=== PATIENT | male | born 1965 | race Caucasian/White ===

== ENCOUNTER 2017-03-15 08:55 | Observation (INO) | payer OTHER ==
[~2017-03-15] VITALS: Ht 167.6 cm; Wt 118.8 kg
[~2017-03-15 08:55] MED LIST: NAPR1TAB9 PO; PRLSR20 PO; ZNTT/150 PO
[2017-03-15] MEDS ORDERED: ONDANSETRON INJ 2 MG/ML 2 ML VIAL IV STA (09:26)
[2017-03-15] MEDS ORDERED: ALUMINUM/MAGNESIUM SUSP 30 ML UDC PO STA (09:26)
[2017-03-15] MEDS ORDERED: NITROGLYCERIN OINT 2% 1GM PACKET EXT ONE (09:30)
[2017-03-15 09:35] LABS: BASO % 0.9 %; BASO ABS # 0.04 K/uL (0-0.2); COMPLETE YES; EOS % 2.9 %; HEMATOCRIT 45.6 % (42-52); IG% 0.2 %; LYMPH ABS # 1.32 K/uL (1.2-3.4); MEAN CELL VOLUME 87.9 fL (80-100); MEAN CORPUSCULAR HEMOGLOBIN 29.5 pg (25-34); MEAN CORPUSCULAR HGB CONC 33.6 g/dl (32-36); MEAN PLATELET VOLUME 10.7 fL (7.4-10.4); PLATELET COUNT 137 K/uL (130-400); RED BLOOD COUNT 5.19 M/uL (4.7-6.1); WHITE BLOOD COUNT 4.55 K/uL (4.8-10.8)
--- NOTE | 2017-03-15 09:47 | DIAGNOSTIC IMAGING REPORT ---
CHEST ONE VIEW PORTABLE CLINICAL HISTORY: 51 years-old Male presenting with chest pain. TECHNIQUE: Portable upright AP view of the chest was obtained. COMPARISON: None. FINDINGS: Cardiomediastinal silhouette normal. Lungs and pleural spaces clear. Osseous structures and upper abdomen normal. IMPRESSION: 1. No acute cardiopulmonary disease. Electronically signed by: Harry Regan 03/15/2017 9:45 AM Dictated Date/Time: 03/15/2017 9:45 AM
[2017-03-15 09:49] LABS: ALT/SGPT 30 U/L (12-78); BLOOD UREA NITROGEN 8 mg/dl (7-18); BUN/CREATININE RATIO 8.3 (10-20); CALCIUM 8.7 mg/dl (8.5-10.1); CARBON DIOXIDE 25 mmol/L (21-32); CHLORIDE 106 mmol/L (98-107); CREATININE 0.95 mg/dl (0.60-1.40); GLUCOSE 107 mg/dl (70-99); POTASSIUM 3.9 mmol/L (3.5-5.1); SODIUM 139 mmol/L (136-145)
[2017-03-15 09:54] LABS: ALB/GLOB RATIO 0.8 (0.9-2); ALKALINE PHOSPHATASE 91 U/L (45-117); AST/SGOT 17 U/L (15-37)
[2017-03-15 10:00] LABS: INR 0.9 (0.9-1.1); PROTHROMBIN TIME (PATIENT) 10.1 SECONDS (9.0-12.0)
[2017-03-15] MEDS ORDERED: OPTIRAY 320 IV PRN (10:15)
--- NOTE | 2017-03-15 10:44 | DIAGNOSTIC IMAGING REPORT ---
(CHEST FOR PE) ANGIO WITH CT DOSE: 751.45 mGy.cm HISTORY: 51-year-old male presents with acute chest pain and shortness of breath for 3 days. TECHNIQUE: Multiple CTA images of the chest were obtained after the intravenous administration of 118 mL Optiray 320. Coronal and sagittal MIPS were obtained from the axial data set and were submitted for review. Comparison: Chest radiograph of same day. Findings: CTA: There is adequate opacification of the pulmonary arteries to the level of the subsegmental branches without convincing evidence of acute pulmonary embolism. The thoracic aorta is normal in caliber with bovine morphology. CT CHEST: No axillary or mediastinal adenopathy by CT size criteria. Heart size is normal. The lungs are clear. There is no pneumothorax or pleural effusion. No focal airspace consolidation. Central airways are patent. The imaged upper abdominal structures are with exception of a small sliding-type hiatal hernia. The osseous structures appear intact. Multilevel bridging osteophytes are present throughout the spine. Impression: 1. No acute cardiopulmonary process, specifically no acute aortic pathology or evidence of pulmonary thromboembolic disease. 2. Small sliding-type hiatal hernia incidentally noted. Electronically signed by: Zoltan Ann 03/15/2017 10:43 AM Dictated Date/Time: 03/15/2017 10:37 AM
[2017-03-15] MEDS ORDERED: SODIUM CHLORIDE 0.9% 1000ML 1,000 ML IV STA (10:58)
[2017-03-15] MEDS ORDERED: MoRPHine SULFATE 4 MG/ML 1 ML CARP\\VIAL IV STA (10:58)
[2017-03-15] MEDS ORDERED: ASPIRIN/ALUM/MAGNES/CAL CARB 325 MG TAB PO STA (11:06)
--- NOTE | 2017-03-15 11:49 | EMERGENCY ROOM VISIT NOTE ---
History Report prepared by Dre: Juancho Boateng Under the Supervision of: Dr. Maria Guadalupe Rush D.O. First contact with patient: 09:01 Chief Complaint: CHEST PAIN Stated Complaint: L ARM NUMB,CHEST TIGHT,NAUSEOUS Nursing Triage Summary: triage note: Pt reports for the past three days mid chest pain and shortness of breath. pt reports "it feels like there is a belt there." pt reports pain radiates down left arm. pt reports yesterday he had to stop mowing grass due to shortness of breath. History of Present Illness The patient is a 51 year old male who presents to the Emergency Room with complaints of intermittent chest "tightness" beginning three days ago. He also complains of left arm numbness and pain, nausea, fatigue, subjective fever, resolved abdominal cramping, vomiting, headache, and SOB. He states "I've been sick for a few months" and states that he has not been eating well. The patient states that he was unable to cut his grass without stopping due to feeling short of breath. He states "it feels like there is a belt around my chest". He denies any black or bloody stools, dizziness, or diarrhea. The patient describes the pain in his left arm as "dull" and states that it is either present, or there is numbness present. He states that the pain is present throughout his entire arm. He notes that he takes Prilosec as needed for GERD. The patient notes that his father had a heart attack in his 30's. Patient thought originally symptoms related to history of GERD despite his use of Prilosec. Symptoms not necessarily exertional, however unable to be reproduced with position or movement. No prior history of similar chest pain. Patient denies any recent trauma or acute illness. Source of History: patient Onset: Three days ago Position: chest Quality: other (tightness) Timing: intermittent Associated Symptoms: + fevers (subjective), + headache, + SOB, + nausea, + vomiting, + abdominal pain (cramping), No hematochezia, No diarrhea Note: The patient complains of left arm pain. He denies any dizziness. Review of Systems See HPI for pertinent positives & negatives. A total of 10 systems reviewed and were otherwise negative. Past Medical & Surgical Medical Problems: (1) Borderline diabetes (2) GERD (gastroesophageal reflux disease) (3) Swelling of right knee joint Family History FHx: myocardial infarction Social History Smoking Status: Former Smoker Alcohol Use: none Drug Use: none Marital Status: Housing Status: lives with family Occupation Status: employed Current/Historical Medications Scheduled PRN Omeprazole (Prilosec), 20 MG PO DAILY PRN for Indigestion Allergies Coded Allergies: No Known Allergies (Unverified , 03/15/17) Physical Exam Vital Signs Date Time Temp Pulse Resp B/P (MAP) Pulse Ox O2 Delivery O2 Flow Rate FiO2 03/15/17 11:50 98 Room Air 03/15/17 11:30 58 18 140/96 98 Room Air 03/15/17 11:07 57 18 114/80 98 Room Air 03/15/17 09:10 66 03/15/17 09:07 98 Room Air 03/15/17 09:06 36.7 75 20 164/91 98 Room Air Physical Exam GENERAL: alert, well appearing, well nourished, no distress, non-toxic EYE EXAM: normal conjunctiva, PERRL and EOM's grossly intact OROPHARYNX: no exudate, no erythema, lips, buccal mucosa, and tongue normal and mucous membranes are dry NECK: supple, no nuchal rigidity, no adenopathy, non-tender LUNGS: Clear to auscultation. Normal chest wall mechanics HEART: no murmurs, S1 normal and S2 normal ABDOMEN: abdomen soft, non-tender, normo-active bowel sounds, no masses, no rebound or guarding. BACK: Back is symmetrical on inspection and there is no deformity, no midline tenderness, no CVA tenderness. SKIN: no rashes and no bruising UPPER EXTREMITIES: upper extremities are grossly normal. LOWER EXTREMITIES: No pitting edema. NEURO EXAM: Normal sensorium, cranial nerves II-XII grossly intact, normal speech, no gross weakness of arms, no gross weakness of legs. Medical Decision & Procedures ER Provider Diagnostic Interpretation: Radiology results have been interpreted by the radiologist and reviewed by me. (CHEST FOR PE) ANGIO WITH Findings: CTA: There is adequate opacification of the pulmonary arteries to the level of the subsegmental branches without convincing evidence of acute pulmonary embolism. The thoracic aorta is normal in caliber with bovine morphology. CT CHEST: No axillary or mediastinal adenopathy by CT size criteria. Heart size is normal. The lungs are clear. There is no pneumothorax or pleural effusion. No focal airspace consolidation. Central airways are patent. The imaged upper abdominal structures are with exception of a small sliding-type hiatal hernia. The osseous structures appear intact. Multilevel bridging osteophytes are present throughout the spine. Impression: 1. No acute cardiopulmonary process, specifically no acute aortic pathology or evidence of pulmonary thromboembolic disease. 2. Small sliding-type hiatal hernia incidentally noted. Electronically signed by: Zoltan Ann CHEST ONE VIEW PORTABLE FINDINGS: Cardiomediastinal silhouette normal. Lungs and pleural spaces clear. Osseous structures and upper abdomen normal. IMPRESSION: 1. No acute cardiopulmonary disease. Electronically signed by: Harry Regan Laboratory Results 03/15/17 09:10 Red Blood Count 5.19, Mean Corpuscular Volume 87.9, Mean Corpuscular Hemoglobin 29.5, Mean Corpuscular Hemoglobin Concent 33.6, Mean Platelet Volume 10.7, Neutrophils (%) (Auto) 60.0, Lymphocytes (%) (Auto) 29.0, Monocytes (%) (Auto) 7.0, Eosinophils (%) (Auto) 2.9, Basophils (%) (Auto) 0.9, Neutrophils # (Auto) 2.73, Lymphocytes # (Auto) 1.32, Monocytes # (Auto) 0.32, Eosinophils # (Auto) 0.13, Basophils # (Auto) 0.04 03/15/17 09:10 Test 03/15/17 09:10 White Blood Count 4.55 K/uL (4.8-10.8) Red Blood Count 5.19 M/uL (4.7-6.1) Hemoglobin 15.3 g/dL (14.0-18.0) Hematocrit 45.6 % (42-52) Mean Corpuscular Volume 87.9 fL (80-100) Mean Corpuscular Hemoglobin 29.5 pg (25-34) Mean Corpuscular Hemoglobin Concent 33.6 g/dl (32-36) Platelet Count 137 K/uL (130-400) Mean Platelet Volume 10.7 fL (7.4-10.4) Neutrophils (%) (Auto) 60.0 % Lymphocytes (%) (Auto) 29.0 % Monocytes (%) (Auto) 7.0 % Eosinophils (%) (Auto) 2.9 % Basophils (%) (Auto) 0.9 % Neutrophils # (Auto) 2.73 K/uL (1.4-6.5) Lymphocytes # (Auto) 1.32 K/uL (1.2-3.4) Monocytes # (Auto) 0.32 K/uL (0.11-0.59) Eosinophils # (Auto) 0.13 K/uL (0-0.5) Basophils # (Auto) 0.04 K/uL (0-0.2) RDW Standard Deviation 45.6 fL (36.4-46.3) RDW Coefficient of Variation 14.0 % (11.5-14.5) Immature Granulocyte % (Auto) 0.2 % Immature Granulocyte # (Auto) 0.01 K/uL (0.00-0.02) Prothrombin Time 10.1 SECONDS (9.0-12.0) Prothromb Time International Ratio 0.9 (0.9-1.1) D-Dimer 560 ug/L FEU (0-500) Anion Gap 8.0 mmol/L (3-11) Est Creatinine Clear Calc Drug Dose 110.5 ml/min Estimated GFR () 106.2 Estimated GFR (Non- 91.7 BUN/Creatinine Ratio 8.3 (10-20) Calcium Level 8.7 mg/dl (8.5-10.1) Total Bilirubin 0.6 mg/dl (0.2-1) Aspartate Amino Transf (AST/SGOT) 17 U/L (15-37) Alanine Aminotransferase (ALT/SGPT) 30 U/L (12-78) Alkaline Phosphatase 91 U/L (45-117) Pro-B-Type Natriuretic Peptide 85 pg/ml (0-900) Total Protein 7.5 gm/dl (6.4-8.2) Albumin 3.4 gm/dl (3.4-5.0) Globulin 4.1 gm/dl (2.5-4.0) Albumin/Globulin Ratio 0.8 (0.9-2) Lipase 112 U/L (73-393) Laboratory results per my review. Medications Administered Medications (Trade) Dose Ordered Sig/Yessica Route Start Time Stop Time Status Last Admin Dose Admin Ondansetron HCl (Zofran Inj) 4 mg NOW STAT IV 03/15/17 09:26 03/15/17 09:28 DC 03/15/17 09:34 4 MG Nitroglycerin (Nitroglycerin 2% Oint) 1 inch NOW ONCE EXT 03/15/17 09:30 03/15/17 09:31 DC 03/15/17 09:34 1 INCH Al Hydroxide/Mg Hydroxide (Maalox Susp) 30 ml NOW STAT PO 03/15/17 09:26 03/15/17 09:28 DC 03/15/17 09:34 30 ML Sodium Chloride 1,000 ml @ 999 mls/hr Q1H1M STAT IV 03/15/17 10:58 03/15/17 11:58 DC 03/15/17 11:06 999 MLS/HR Aspirin/Aluminum/ Magnesium/Ca Carb (Ascriptin Tab) 325 mg NOW STAT PO 03/15/17 11:06 03/15/17 11:07 DC 03/15/17 11:38 325 MG ECG Indication: chest pain Rate (beats per minute): 68 Rhythm: normal sinus Findings: no acute ischemic change, no ectopy, other (Normal intervals. Normal axis ) ED Course 15: The patient was evaluated in room B10. A complete history and physical exam was performed. 0926: Ordered Maalox Susp 30 mL PO, Zofran Inj 4 mg IV. 0930: Ordered Nitroglycerin 2% Oint 1 inch EXT. 1055: I reassessed the patient his chest pressure has improved, but his left arm still feels abnormal. 1058: Ordered Sodium Chloride 1000 ml @ 999 mls/hr IV, Morphine Sulfate 4 mg IV. 1106: Ordered Ascriptin Tab 325 mg PO. 1140: Upon reevaluation, the patient is resting. I discussed the findings and the treatment plan with the patient. He expresses agreement and understanding. I spoke with Dr. Kuhn of the [facility] Hospitalist Service. The patient will be evaluated for further management. Medical Decision Differential diagnosis: Etiologies such as cardiac ischemia, aortic dissection, pulmonary embolism, pneumonia, pneumothorax, musculoskeletal, infections, pericarditis, myocarditis , esophageal rupture, gastrointestinal, as well as others were entertained. Patient with risk factors for ACS and concerning family history. Despite negative initial evaluation emergency room, patient did for additional evaluation. No evidence of vascular pathology, pulmonary pathology, doubt bacteremia/sepsis. Patient's chest pain improved with nitroglycerin, however had residual left upper extremity pain, morphine added as precaution. Patient also given an aspirin. Heart score 3. Patient had no improvement following administration of Maalox here, given atypical nature despite prior history of GERD, concern for cardiac etiology. Consults Time Called: 1130 Consulting Physician: Dr. Kuhn -OTONIEL Returned Call: [phone] I reviewed the patient's case with Dr. Kuhn. OTONIEL will evaluate the patient for further management. Impression Primary Impression: Chest pressure Additional Impression: Left arm pain Scribe Attestation The scribe's documentation has been prepared under my direction and personally reviewed by me in its entirety. I confirm that the note above accurately reflects all work, treatment, procedures, and medical decision making performed by me. Departure Information Dispostion Being Evaluated By Hospitalist Referrals No Doctor, Assigned (PCP) Patient Instructions My [facility] Problem Qualifiers
[2017-03-15 11:50] VITALS: O2SAT 98; Ht 167.6 cm; Wt 118.8 kg
[2017-03-15] MEDS ORDERED: NITROGLYCERIN 0.4 MG SL PER TAB CHARGE SL PRN (12:30)
[2017-03-15] MEDS ORDERED: ACETAMINOPHEN 325 MG TAB PO PRN (12:30)
[2017-03-15] MEDS ORDERED: ONDANSETRON INJ 2 MG/ML 2 ML VIAL IV PRN (12:30)
[2017-03-15] MEDS ORDERED: ALUMINUM/MAGNESIUM SUSP 30 ML UDC PO PRN (12:30)
[2017-03-15] MEDS ORDERED: MAGNESIUM HYDROXIDE SUSP 30 ML UDC PO PRN (12:30)
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
[2017-03-15 13:01] VITALS: BP 129/80; PULSE 60; TEMP 36.4; O2SAT 96
[2017-03-15] MEDS ORDERED: PANTOprazole SOD 40 MG TAB PO PRN (13:52)
[2017-03-15] MEDS ORDERED: IV FLUIDS COMPLETED PRN (14:30)
[2017-03-15 15:33] VITALS: BP 129/81; PULSE 50; TEMP 36.9; O2SAT 97
[2017-03-15 16:00] VITALS: O2SAT 97
[2017-03-15 19:00] VITALS: BP 123/81; PULSE 56; TEMP 37; O2SAT 99
[2017-03-15 23:48] VITALS: BP 109/71; PULSE 50; TEMP 36.5; O2SAT 98
[2017-03-16 03:52] VITALS: BP 129/84; PULSE 56; TEMP 36.4; O2SAT 100
[2017-03-16 06:19] LABS: ESTIMATED AVERAGE GLUCOSE 108 mg/dl; HA1C FLAG Normal (Normal)
[2017-03-16 06:49] LABS: CHOLESTEROL/HDL RATIO 3.4
[2017-03-16 07:20] VITALS: BP 123/80; PULSE 57; TEMP 36.6; O2SAT 98
[2017-03-16] MEDS ORDERED: PERFLUTREN LIPID MICROSPHERE (DEFINITY) IV ONE (11:31)
[2017-03-16 11:46] VITALS: BP 131/88; PULSE 71; TEMP 36.9; O2SAT 97
[2017-03-16] MEDS ORDERED: PRVHFAIN INH (11:46)
[2017-03-16] MEDS ORDERED: PANT40TA PO (11:46)
--- NOTE | 2017-03-16 11:57 | Discharge Instructions ---
Discharge Instructions Date of Service Mar 16, 2017. Admission Reason for Admission: Chest Pressure Discharge Discharge Diagnosis / Problem: Chest pressure; SOB Discharge Goals Goal(s): Decrease discomfort, Diagnostic testing Activity Recommendations Activity Limitations: resume your previous activity . Instructions / Follow-Up Instructions / Follow-Up You presented to the emergency room because of chest pressure and shortness of breath. During your stay, a cardiac event was ruled out. We discussed these symptoms could have been related to other causes, such as acid reflux, asthma, or the recent illness you have experienced. Case management has established a family physician (PCP) and setup a follow-up appointment prior to discharge. It is important you keep this follow-up to further evaluate and treat these symptoms. As far as your intermittent left arm numbness and tingling, please follow-up with your PCP to further evaluate, manage, and treat symptoms. Medications: 1. Protonix 40 mg by mouth once per day This medication is a proton pump inhibitor (reduces the acid in the stomach). You mentioned you have recently been having more severe acid reflux. Please take this medication as prescribed and follow-up with your PCP. This medication has been sent electronically to your pharmacy. 2. Albuterol 2 puffs as needed for shortness of breath or wheezing This has been sent to your pharmacy electronically. Please keep scheduled follow-up with PCP. Please follow-up/keep all of your subspecialty appointments. Activation of Emergency Medical System: Call 911, immediately, if you experience any of the following: Warning Signs and Symptoms of a Heart Attack: * Chest pain that is not relieved by medication * Shortness of breath Otherwise, call your doctor immediately if you have: * Lightheadedness, dizziness, or fainting * Feeling of irregular heartbeat or fast pulse Home Care: * If you are having chest pain, call 911 for an ambulance. Do NOT drive yourself to the hospital. * Ask your family members to learn CPR. * Learn to take your own blood pressure and pulse. Keep a record of your results. Ask your doctor when you should seek emergency medical attention. He or she will tell you which blood pressure reading is dangerous. Lifestyle Changes: * Maintain a healthy weight. Get help to lose any extra pounds. * Cut back on salt. 1. Limit canned, dried, packaged, and fast foods. 2. Don't add salt to your food. 3. Season foods with herbs instead of salt when you cook. * Break the smoking habit. Enroll in a stop-smoking program to improve your chances of success. * Limit fatty foods. * Check your lipid levels regularly. (Your doctor can show you how to do this. ) * Build up your activity according to your doctor's recommendation. * Ask your doctor when it's okay to resume sexual activity. * Tell your doctor about any erectile dysfunction (ED) medication you are taking. Some ED medications are not safe if you take certain heart medications. * Try to manage stress. Follow Up: It is important for you to keep your follow up appointments with your medical provider. Current Hospital Diet Patient's current hospital diet: Regular Diet Discharge Diet Recommended Diet: Regular Diet Procedures Procedures Performed: Chest x-ray Chest CTA Stress echocardiogram Pending Studies Studies pending at discharge: no Laboratory Results Last 24 Hours Test 03/15/17 15:19 03/15/17 21:15 03/16/17 05:56 Estimated Average Glucose 108 mg/dl Hemoglobin A1c 5.4 % Troponin I < 0.015 ng/ml < 0.015 ng/ml Thyroid Stimulating Hormone (TSH) 2.890 uIu/ml Triglycerides Level 115 mg/dl Cholesterol Level 133 mg/dl HDL Cholesterol 39 mg/dl LDL Cholesterol, Calculated 71 mg/dl VLDL Cholesterol, Calculated 23 mg/dl Cholesterol/HDL Ratio 3.4 Hemoglobin A1c Test 03/15/17 15:19 Range/Units Estimated Average Glucose 108 mg/dl Hemoglobin A1c 5.4 4.5-5.6 % Lipid Panel Test 03/16/17 05:56 Range/Units Triglycerides Level 115 0-150 mg/dl Cholesterol Level 133 0-200 mg/dl HDL Cholesterol 39 mg/dl Cholesterol/HDL Ratio 3.4 LDL Cholesterol, Calculated 71 mg/dl Medical Emergencies . Who to Call and When: Medical Emergencies: If at any time you feel your situation is an emergency, please call 911 immediately. Call 911 immediately or go to your nearest Emergency Room if you experience any of the following: Warning Signs and Symptoms of a Heart Attack * Chest pain that is not relieved by medication * Shortness of breath . Non-Emergent Contact Non-Emergency issues call your: Primary Care Provider . . "Provider Documentation" section prepared by Abril Guerrero. . AMI Core Measures Reason no ASA as I/P: Treatment not indicated Reason no ASA at D/C: Treatment not indicated Reason no statin as I/P: Treatment not indicated Reason no statin at D/C: Treatment not indicated VTE Core Measure Inpt VTE Proph given/why not?: Saturnino Ochoa, SCD's
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
[2017-03-16 12:42] VITALS: BP 131/88; PULSE 71; TEMP 36.9; O2SAT 97
--- NOTE | 2017-03-16 19:06 | EXERCISE STRESS ECHO ---
*NOTICE TO RECEIVING CONSTITUTION PARTY AGENCY This information is strictly Confidential and protected under [place] law. [place] law prohibits you from making any further disclosure of this information unless further disclosure is expressly permitted by the written consent of the person to whom it pertains or is authorized by law. A general authorization for the release of medical or other information is not sufficient for this purpose. Hospital accepts no responsibility if the information is made available to any other person, INCLUDING THE PATIENT. Interpretation Summary * Name: RAIN CARIAS JR Study Date: 03/16/2017 10:22 AM BP: 128/79 mmHg * Patient Location: C.2T\S\S232\S\1 HR: 52 * : 1965 (M/d/yyyy) Gender: Male Height: 66 in * Age: 51 yrs Ethnicity: CA Weight: 262 lb * Ordering Physician: Mariana Kuhn * Referring Physician: Self, Referred * Performed By: Yolanda Paz RCS * * Reason For Study: CHEST PAIN * BSA: 2.2 m2 * -- Conclusions -- * Stress Echo: * 1. Negative stress echo for ischemia at 93 % MPHR. * 2. Negative exercise ECG for ischemia at 93 % MPHR. * 3. Mildly hypertensive blood pressure response to exercise. * 4. Brief paroxysmal atrial runs, less than 10 beats. * 5. Study terminated due to fatigue. No chest pain reported. * 6. Fair exercise tolerance. * Echo: * 1. Normal left ventricular size and systolic function. EF 55-60%. No regional wall motion abnormalities. Mild left ventricular hypertrophy. * 2. Mildly dilated right ventricle with normal systolic function. * 3. No significant valvular abnormalities visualized. * 4. Normal estimated right ventricular systolic pressure; 27 mmHg. Procedure Details * ECHOEX, CPT #[id number] * ECHO COLOR FLOW, CPT #[id number] * ECHO DOPPLER, CPT #[id number] * A contrast injection of Definity was performed to improve assessment of LV function. * Contrast was injected into an intravenous site in the right arm. * One vial of Definity ultrasound contrast was diluted in normal saline to a total volume of 10 ml. A total of '4' ml of solution was administered during imaging. * Lot # [id number] of Definity utilized for procedure. * Expiration date 1 AUG 18. * The attending nurse who injected the contrast agent was IFRAH ULLOA CPL, RN. Left Ventricle * The left ventricle is normal in size. * Left ventricular systolic function is normal. * Resting wall motion: Normal. Stress wall motion: Appropriate increase in Left ventricular systolic function and decrease in cavity size. No stress induced segmental wall motion abnormalities. * The left ventricular ejection fraction increases normally with stress. The left ventricular end-systolic cavity size reduces post-stress (normal response). The left ventricular wall motion with stress is normal. Right Ventricle * Mildly dilated right ventricle with normal systolic function. * The right ventricular systolic function is normal as assessed by tricuspid annular plane systolic excursion (TAPSE) (normal >1.5 cm). Atria * The left atrial size is normal. * Right atrial size is normal. * There is no evidence of atrial septal defect, but resolution does not allow assessment for a patent foramen ovale. Mitral Valve * The mitral valve is grossly normal. * There is no mitral valve stenosis. * There is trace mitral regurgitation. Tricuspid Valve * The tricuspid valve is not well visualized, but is grossly normal. * There is no tricuspid stenosis. * There is trace tricuspid regurgitation. Aortic Valve * The aortic valve is trileaflet. * No hemodynamically significant valvular aortic stenosis. * No aortic regurgitation is present. Pulmonic Valve * The pulmonary valve is inadequately visualized, but the Doppler data is adequate for interpretation. * There is no significant pulmonary regurgitation. Great Vessels * The aortic root is normal size. * Ascending aorta of normal dimension * IVC normal in size. Pericardium * There is no pericardial effusion. Stress Parameters * Sinus bradycardia 54 bpm. * Stress ECG: No ST changes. No arrhythmias. * Brief atrial run of less than 10 beats. * The stress portion of this study was personally supervised by the undersigned interpreting physician. * Rest heart rate was '52' BPM. * Rest blood pressure was '128/79' * Maximum heart rate achieved was 157 bpm. * Maximum heart rate was 93 % of maximum age-predicted heart rate. * Maximum blood pressure was '191/102' * Total exercise time was '06:00' * Maximum exercise MET level achieved was '7.00' METS * Maximum treadmill speed was '2.50' miles per hour. * Maximum treadmill elevation was '12.00'% grade. MMode 2D Measurements and Calculations IVSd 1.4 cm IVSs 1.7 cm LVIDd 4.8 cm LVIDs 3.4 cm LVPWd 1.0 cm LVPWs 1.3 cm IVS/LVPW 1.4 FS 30.4 % EDV(Teich) 109.2 ml ESV(Teich) 46.3 ml EF(Teich) 57.6 % EDV(cubed) 112.9 ml ESV(cubed) 38.1 ml EF(cubed) 66.2 % % IVS thick 28.2 % % LVPW thick 33.8 % LV mass(C)d 216.0 grams LV mass(C)dI 96.3 grams/m\S\2 LV mass(C)s 191.5 grams LV mass(C)sI 85.4 grams/m\S\2 SV(Teich) 63.0 ml SI(Teich) 28.1 ml/m\S\2 SV(cubed) 74.8 ml SI(cubed) 33.3 ml/m\S\2 Ao root diam 3.4 cm Ao root area 9.1 cm\S\2 ACS 2.1 cm LA dimension 3.6 cm asc Aorta Diam 3.0 cm LA/Ao 1.1 LVOT diam 2.0 cm LVOT area 3.2 cm\S\2 Doppler Measurements and Calculations MV E max kwan 86.7 cm/sec MV A max kwan 65.4 cm/sec MV E/A 1.3 MV P1/2t max kwan 91.8 cm/sec MV P1/2t 66.4 msec MVA(P1/2t) 3.3 cm\S\2 MV dec slope 404.7 cm/sec\S\2 MV dec time 0.17 sec Ao V2 max 104.8 cm/sec Ao max PG 4.4 mmHg Ao max PG (full) 0.90 mmHg RAVINDRA(V,A) 2.8 cm\S\2 RAVINDRA(V,D) 2.8 cm\S\2 LV V1 max PG 3.5 mmHg LV V1 max 93.4 cm/sec TV E max kwna 73.9 cm/sec PA V2 max 94.2 cm/sec PA max PG 3.5 mmHg TR max kwan 243.6 cm/sec RVSP(TR) 26.7 mmHg RAP systole 3.0 mmHg
== END 2017-03-16 13:10 | disposition home or self-care (01) ==
LOC: C.EDB 08:56 → C.2T 12:19 → ENRESERV 12:34
PROVIDERS: ADMIT Family Medicine; ATTEND Internal Medicine
DX: R07.9 Chest pain, unspecified (principal); R06.02 Shortness of breath; R73.03 Prediabetes; K21.9 Gastro-esophageal reflux disease without esophagitis; K44.9 Diaphragmatic hernia without obstruction or gangrene; Z87.891 Personal history of nicotine dependence; Z82.49 Family history of ischemic heart disease and other diseases of the circulatory system